=== PATIENT | male | born 1985 | race Hispanic/Latino ===

== ENCOUNTER 2018-11-15 17:53 | Emergency (ER) | payer SELFPAY ==
[2018-11-15] MEDS ORDERED: Ibuprofen 800 MG TAB ONE (19:23)
--- NOTE | 2018-11-15 20:04 | RAD ---
RIGHT SHOULDER THREE VIEWS: History: Injury. FINDINGS: No evidence of fracture or dislocation. The clavicle has slight superior positioning with respect to the acromion. There is no evidence of wi dening of the AC joint. Recommend clinical correlation regarding tenderness at the AC joint. No other abnormalities seen. POS: OFF
== END 2018-11-15 20:08 | disposition home or self-care (01) ==
LOC: ERS 17:53
DX: M25.511 Pain in right shoulder (principal); F17.210 Nicotine dependence, cigarettes, uncomplicated